=== PATIENT | female | born 1945 | race Caucasian/White ===

== ENCOUNTER 2023-05-16 21:00 | Outpatient (OUT) | payer OTHER, SELFPAY | END 2023-05-16 21:01 | disposition home or self-care (01) | LOC: SLEEP 21:00 | PROVIDERS: PCP Physician Assistant Medical; Visit Provider Physician Assistant Medical | DX: G47.33 Obstructive sleep apnea (adult) (pediatric) (principal); G31.84 Mild cognitive impairment of uncertain or unknown etiology; G47.10 Hypersomnia, unspecified | CPT/HCPCS: 95810 ==

== ENCOUNTER 2023-07-04 19:54 | Outpatient (OUT) | payer OTHER, SELFPAY | END 2023-07-04 19:55 | disposition home or self-care (01) | LOC: SLEEP 19:56 | PROVIDERS: PCP Physician Assistant Medical; Visit Provider Physician Assistant Medical | DX: G47.33 Obstructive sleep apnea (adult) (pediatric) (principal) | CPT/HCPCS: 95811 ==